=== PATIENT | female | born 1940 | race Caucasian/White ===

== ENCOUNTER 2023-08-01 10:53 | Emergency (ER) | payer MEDICARE ==
[2023-08-01 11:47] LABS: #Eosinphils 0.2 10x3/uL (0.0-0.5); #Monocytes 0.4 10x3/uL (0.0-1.1); #Neutrophils 5.8 10x3/uL (1.5-8.4); %Basophils 0.5 % (0.0-2.0); %Eosinophils 2.6 % (0.0-6.0); %Lymphocytes 12.5 % (18.0-47.0); %Monocytes 5.7 % (0.0-10.0); %Neutrophils 78.4 % (40.0-75.0); Mean Corpuscular Hemoglobin 17.7 pg (27.0-33.0); Mean Corpuscular Volume 63.3 fl (81.6-98.3); Platelet Count 250 10x3/uL (150-450); Red Blood Cell (RBC) Count 3.95 10x6/uL (3.90-5.03); White Blood Cell (WBC) Count 7.4 10x3/uL (3.5-10.5)
[2023-08-01 11:53] LABS: ALT (SGPT) Less than 7 U/L (8-55); AST (SGOT) 13 U/L (5-34); Albumin 4.4 g/dL (3.4-4.8); Alkaline Phosphatase 47 U/L (40-110); Anion Gap 14 mmol/L (10-20); BUN (Urea Nitrogen) 27 mg/dL (9.8-20.1); Bilirubin, Total 0.5 mg/dL (0.2-1.2); Calc. Creatinine Clearance 0 mL/min (70-130); Calcium 8.7 mg/dL (7.8-10.44); Carbon Dioxide 19 mmol/L (23-31); Chloride 110 mmol/L (98-107); Estimated GFR 65; Glucose 156 mg/dL (83-110); Potassium 3.6 mmol/L (3.5-5.1); Protein, Total 6.4 g/dL (5.8-8.1); Sodium 139 mmol/L (136-145)
[2023-08-01 11:59] LABS: Troponin I Less than 0.010 ng/mL (< 0.028)
[2023-08-01 13:19] LABS: Anisocytosis SLIGHT = 6-15 cells (100X) (0-5/hpf); Reflex for Review?? YES
[2023-08-01 13:20] LABS: Hypochromia MODERATE=16-30 cells (100X) (0-5/hpf); Microcytosis MODERATE=15-30 cells (100X) (0-5/hpf); Platelet Adequacy Comment Appears Adequate; Polychromasia SLIGHT = 2-3 cells (100X) (0-2/hpf)
== END 2023-08-01 14:29 ==
LOC: CSHERS 10:53
DX: D64.9 Anemia, unspecified (principal); I48.91 Unspecified atrial fibrillation; R07.9 Chest pain, unspecified; R55 Syncope and collapse; E11.9 Type 2 diabetes mellitus without complications; E78.5 Hyperlipidemia, unspecified; I10 Essential (primary) hypertension; Z79.84 Long term (current) use of oral hypoglycemic drugs; Z79.82 Long term (current) use of aspirin
CPT/HCPCS: 71045; 80053; 83605; 83880; 84484; 85025; 85060; 93005

== ENCOUNTER 2023-08-12 13:08 | Day surgery (SDC) | payer MEDICARE ==
[2023-08-12] MEDS ORDERED: diphenhydrAMINE 50 MG/ML VIAL ONE (13:25)
[2023-08-12] MEDS ORDERED: Iron, Sodium Ferric Gluconate 125 MG in Sodium Chloride 0.9% 100 ML IVPB SCH (13:30)
== END 2023-08-12 15:30 | disposition home or self-care (01) ==
LOC: CSHSDC 13:08
PROVIDERS: ATTEND Student in an Organized Health Care Education/Training Program
DX: D50.9 Iron deficiency anemia, unspecified (principal)
CPT/HCPCS: J1200; J2916; J3490